=== PATIENT | female | born 1990 | race Hispanic/Latino ===

== ENCOUNTER 2025-06-02 10:14 | Inpatient (IN) | payer BC ==
[2025-06-01 10:21] LABS: Hematocrit 32.8 % (34.9-44.5); Hemoglobin 10.6 g/dL (12.0-15.5); Platelet Count 187 10x3/uL (150-450)
[2025-06-01 10:56] LABS: Syphilis Antibody Index 0.12 S/CO (<1.00 Non-Reactive)
[2025-06-01 10:57] LABS: Hep B Surf Ag Non-Reactive S/CO (NonReactive)
[~2025-06-02 10:14] MED LIST: Bicitra 30 ML UDCUP PO PRN; Ondansetron PF 4 MG/2 ML Vial IVP PRN; Oxytocin 30 units/NS 500 ML 500 ML IV SCH; hydrALAZINE 20 MG/ML VIAL SLOW IVP PRN
[2025-06-02] MEDS ORDERED: Methylergonovine 0.2 MG/ML VIAL IM PRN (10:20)
[2025-06-02] MEDS ORDERED: Diphenoxylate HCl/Atropine Tablet PO PRN (10:20)
[2025-06-02] MEDS ORDERED: Carboprost 250 MCG/ML AMP IM PRN (10:20)
[2025-06-02 11:18] VITALS: BMI 29.4
[2025-06-02] MEDS: Famotidine/PF 20 mg/2ml Vial SLOW IVP PRN (11:39)
[2025-06-02] MEDS ORDERED: Lanolin Ointment 7 GM TUBE TOP PRN (16:43)
[2025-06-02] MEDS ORDERED: diphenhydrAMINE 25 MG CAP PO PRN (16:43)
[2025-06-02] MEDS ORDERED: hydrALAZINE 20 MG/ML VIAL SLOW IVP PRN (16:43)
[2025-06-02] MEDS ORDERED: Bisacodyl 10 MG SUPP PR PRN (16:43)
[2025-06-02] MEDS ORDERED: Acetaminophen 325 MG TAB PO PRN (16:43)
[2025-06-02] MEDS ORDERED: Ondansetron PF 4 MG/2 ML Vial IVP PRN (16:43)
[2025-06-02] MEDS ORDERED: Simethicone Chewable 80 MG TAB PO PRN (16:43)
[2025-06-02] MEDS: Oxytocin 10 UNITS/ML VIAL ONE ×2 (16:46)
[2025-06-02] MEDS: Ketorolac Tromethamine 30 MG (1 mL) VIAL ONE (16:46)
[2025-06-02] MEDS: Ondansetron PF 4 MG/2 ML Vial ONE (16:46)
[2025-06-02] MEDS: Ibuprofen 800 MG TAB PO SCH (19:57)
[2025-06-02] MEDS: Ferrous Sulfate 325 MG TAB PO SCH (19:58)
[2025-06-03 04:15] LABS: Hematocrit 27.3 % (34.9-44.5); Hemoglobin 8.7 g/dL (12.0-15.5); Mean Corpuscular Hemoglobin 27.7 pg (27.0-33.0); Mean Corpuscular Volume 86.9 fL (81.6-98.3); Platelet Count 153 10x3/uL (150-450); Red Blood Cell (RBC) Count 3.14 10x6/uL (3.90-5.03); White Blood Cell (WBC) Count 8.21 10x3/uL (3.5-10.5)
[2025-06-03] MEDS: HYDROcodone/Acetaminophen 5/325 mg Tablet PO PRN ×2 (08:47→17:25)
[2025-06-04 12:15] VITALS: BP 109/57; TEMP 97.8
== END 2025-06-04 12:50 | disposition home or self-care (01) | DRG 784 ==
LOC: CSHLD 10:14 → CSHPP 15:40
PROVIDERS: ADMIT Student in an Organized Health Care Education/Training Program; ATTEND Student in an Organized Health Care Education/Training Program
PROC: 10D00Z1 Extraction of Products of Conception, Low, Open Approach (ICD-10-PCS; principal; 2025-06-02)
PROC: 0UB70ZZ Excision of Bilateral Fallopian Tubes, Open Approach (ICD-10-PCS; 2025-06-02)
DX: O34.211 Maternal care for low transverse scar from previous cesarean delivery (principal); D62 Acute posthemorrhagic anemia; O99.824 Streptococcus B carrier state complicating childbirth; Z3A.39 39 weeks gestation of pregnancy; Z37.0 Single live birth
CPT/HCPCS: 36415; 51702; 85014; 85018; 85027; 85049; 86780; 86850; 86900; 86901; 87340; 88302; J1308; J1885; J2274; J2405; J2590; J7120